=== PATIENT | male | born 1985 | race Two or more races ===

== ENCOUNTER 2019-09-19 12:12 | Emergency (ER) | payer MEDICAID, SELFPAY ==
[~2019-09-19] VITALS: Ht 167.6 cm; Wt 91.0 kg
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
[2019-09-19] MEDS ORDERED: ONDANSETRON 2MG/ML, 2ML ONE (13:22)
[2019-09-19] MEDS ORDERED: ONDANSETRON 2MG/ML, 2ML IVPush ONE (13:30)
[2019-09-19] MEDS ORDERED: SODIUM CHLORIDE 0.9% 1,000ML IVBOLUS ONE (13:30)
[2019-09-19] MEDS ORDERED: HYDROmorphone 2 MG/ML, 1ML IVPush PRN (13:30)
[2019-09-19] MEDS ORDERED: SODIUM CHLORIDE FLUSH 10ML SYR IVF ONE (13:30)
[2019-09-19 13:33] LABS: BASOPHILS # (AUTO) 0.02 x10^3/uL (0-0.1); BASOPHILS % (AUTO) 0 % (0-1); EOSINOPHILS # (AUTO) 0.08 x10^3/uL (0-0.4); EOSINOPHILS % (AUTO) 1 % (1-7); LYMPHOCYTES # (AUTO) 1.59 x10^3/uL (1-3.4); LYMPHOCYTES % (AUTO) 20 % (22-44); MD NO; MEAN CORPUSCULAR HEMOGLOBIN 28.2 pg (27.5-34.5); MEAN CORPUSCULAR HGB CONC 33.7 g/dL (33.2-36.2); MEAN CORPUSCULAR VOLUME 83.5 fL (81-97); MONOCYTES # (AUTO) 0.43 x10^3/uL (0.2-0.8); MONOCYTES % (AUTO) 5 % (2-9); NEUTROPHILS # (AUTO) 5.94 x10^3/uL (1.8-6.8); NEUTROPHILS % (AUTO) 74 % (42-75); PLATELET COUNT 215 x10^3/uL (130-400); RED BLOOD COUNT 5.79 x10^6/uL (4.38-5.82); RED CELL DISTRIBUTION WIDTH 13.2 % (9.4-14.8)
[2019-09-19 13:42] LABS: ALBUMIN 3.8 g/dL (3.4-5.0); ANION GAP 9 mmol/L (5-15); CALCIUM 8.5 mg/dL (8.5-10.1); CHLORIDE 107 mmol/L (98-107)
[2019-09-19 13:46] LABS: ALANINE AMINOTRANSFERASE 42 U/L (12-78); ALKALINE PHOSPHATASE 48 U/L (45-117); BILIRUBIN,TOTAL 0.9 mg/dL (0.2-1.0); CREATININE 0.98 mg/dL (0.7-1.3); TOTAL PROTEIN 7.4 g/dL (6.4-8.2)
--- NOTE | 2019-09-19 13:53 | NUR ---
IV STARTED PER ORDERS. PT MEDICATED WITH ZOFRAN PER ORDERS. PT REFUSING DILAUDID AT THIS TIME. PT REMAINS ON MONITORS, VSS. CONT TO MONITOR.
[2019-09-19] MEDS ORDERED: OMNIPAQUE 350 MG/ML, 100ML BOTTLE ONE (14:07)
--- NOTE | 2019-09-19 14:21 | NUR ---
PT TO IMAGING.
[2019-09-19] MEDS ORDERED: FAMOTIDINE 20 MG/2 ML IVPush ONE (15:00)
[2019-09-19] MEDS ORDERED: MAALOX/HYOSCYAMINE/LIDOCAINE 45 ML BTL PO ONE (15:00)
[2019-09-19] MEDS ORDERED: PANTOPRAZOLE 40 MG IV IVPush ONE (15:00)
[2019-09-19] MEDS ORDERED: MAALOX/HYOSCYAMINE/LIDOCAINE 45 ML BTL ONE (15:06)
[2019-09-19] MEDS ORDERED: FAMOTIDINE 20 MG/2 ML ONE (15:06)
[2019-09-19] MEDS ORDERED: PANTOPRAZOLE 40 MG IV ONE (15:12)
--- NOTE | 2019-09-19 15:40 | NUR ---
PT OK FOR D/C PER ERMD. PT STATES ABD PAIN DECREASED, MEDICATIONS EFFECTIVE. PT HAS ALL OWN BELONGINGS UPON D/C.
[2019-09-19 15:42] VITALS: BP 117/67
== END 2019-09-19 15:57 | disposition home or self-care (01) ==
LOC: ED 15:40
DX: K29.00 Acute gastritis without bleeding (principal); R10.13 Epigastric pain; R11.2 Nausea with vomiting, unspecified
CPT/HCPCS: 36415; 74177; 80053; 83605; 83690; 85025; 96361; 96374; 96375; 99285; C9113; J2405; J3490; J7030; Q9967